=== PATIENT | female | born 1960 | race Caucasian/White ===

== ENCOUNTER 2021-08-11 07:02 | Day surgery (SDC) | payer OTHER, SELFPAY ==
[2021-08-11 07:19] VITALS: BP 127/87; PULSE 65; RESP 16; TEMP 36.2; O2SAT 97
[2021-08-11] MEDS: Tropicam./Phenyleph. (1/2.5%) 5 ML BTL OD ×3 (07:30→07:40)
--- NOTE | 2021-08-11 07:32 | W.ANESPRE ---
General Info Date of Service Date Performed: 08/11/21 Height: 5 ft 5 in Weight: 87.4 kg Body Mass Index (BMI): 32.1 Surgical Procedure: Operation Date: 08/11/21 08:40 Proposed Procedure Side Surgeon p Cataract Extraction with IOL Implant Bilateral Santiago Pop MD Meds Allergies and Home Medications Allergies Allergy/AdvReac Type Severity Reaction Status Date / Time tree and shrub pollen Allergy Intermediate Verified 08/11/21 07:14 shellfish derived AdvReac Intermediate Other (See Verified 08/11/21 07:14 Comment) Home Medication Medication Instructions Recorded acetaminophen 500 mg tablet 1,000 mg PO Q6H 08/09/21 apixaban 5 mg tablet (Eliquis) 5 mg PO BID 08/09/21 aspirin 81 mg tablet,delayed 81 mg PO DAILY 08/09/21 release atorvastatin 10 mg tablet 10 mg PO DAILY 08/09/21 cyclobenzaprine 10 mg tablet 10 mg PO TID 08/09/21 nicotine (polacrilex) 4 mg buccal 4 mg PO Q2H PRN 08/09/21 lozenge nicotine 21 mg/24 hr daily 21 mg TRANSDERMAL Q24H 08/09/21 transdermal patch Current Visit Medications: Current Medications Generic Name Dose Route Start Last Admin Trade Name Freq PRN Reason Stop Dose Admin Acetaminophen 1,000 mg 08/11/21 06:00 Acetaminophen 500 Mg Tab PO Q4H PRN PRN Miscellaneous Medication 0 ml 08/11/21 06:00 Prednisolone 1%, Moxifloxacin 0.5%, Nepafenac 0.1% 5ml Btl OD DIRECTED [facility] Miscellaneous Medication 0 ml 08/11/21 06:00 08/11/21 07:30 Tropicam./Phenyleph. 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 History of palpitations HLD (hyperlipidemia) Hx of uterine prolapse Hypertensive disorder Ischemia of right lower extremity Mass of left adrenal gland Nicotine dependence Obesity Surgical History Surgical History (Updated 08/11/21 @ 07:14 by Velasquez Patrikc) Hx of tubal ligation Tobacco Smoking/Tobacco Use Status: Current every day Tobacco Type: cigarettes Alcohol Alcohol Intake: never Substance Use Substance use: Daily Substance use type: marijuana Vital Signs and Lab Results Vital Signs Most Recent Vital Signs in EMR: Most Recent Vital Signs Temp Pulse Resp BP Pulse Ox 36.2 C L 65 16 127/87 97 08/11/21 07:19 08/11/21 07:19 08/11/21 07:19 08/11/21 07:19 08/11/21 07:19 Lab Results Blood Type / Crossmatch: No Data to Display Complete Blood Count: No Data to Display Complete Metabolic Panel: No Data to Display Liver Function Panel: No Data to Display Coagulation Panel: No Data to Display Cardiac Panel: No Data to Display Arterial Blood Gas: No Data to Display Venous Blood Gas: No Data to Display Pancreas Panel: No Data to Display Thyroid Panel: No Data to Display Infectious Disease: No Data to Display Blood Cultures: No Data to Display Toxicology Panel: No Data to Display Anesthesia Assessment and Plan Anesthesia History Personal History: No History of Anesthesia Complications Family History: No Family History of Anesthesia Complications Exercise Tolerance Exercise Tolerance: Metabolic Equivalents>4 Pertinent Negatives Pertinent Negatives: No Major Cardiovascular Symptoms or Complaints Cardiac & Pulmonary Exam Cardiac Exam: Normal S1/S2 Heart Sounds Pulmonary Exam: Clear Bilateral Breath Sounds Implantable Cardiac Device Does patient have a Pacemaker or an ICD?: No Airway Exam Known Difficult Airway: No Mallampati Class: 2 Mouth Opening: Normal (> 3cm) Thyromental Distance: Greater than 3 cm Neck Range of Motion: Full ROM Neck Circumference: Normal Teeth Condition: Generalized Poor Dentition ASA Classification ASA Score: ASA 3 Emergency Case?: No NPO Status NPO Status: NPO Clears >2 hours, Solids >8 hours Anesthesia Plan Resuscitation Status: Full Code Anesthesia Technique: MAC Anesthesia Airway Planned: Natural Airway Monitors Used: Standard Monitors
[2021-08-11 07:34] VITALS: BMI 32.1
[2021-08-11] MEDS: Lidocaine 2% Jelly 6 ML SYR ×2 (08:08→08:42)
[2021-08-11] MEDS: Povidone-Iodine Ophth 30 ML BTL ×2 (08:08→08:45)
[2021-08-11] MEDS: Tetracaine 0.5% 4 ML BTL OD ×2 (08:08→08:52)
[2021-08-11] MEDS: Duovisc Viscoelastic System EACH 1 EACH ×2 (08:12→08:39)
[2021-08-11] MEDS: Balanced Salt Soln.-PLUS 500 ML BAG ×2 (08:15→08:28)
[2021-08-11 09:00] VITALS: BP 123/76; PULSE 64; RESP 16; TEMP 36.4; O2SAT 97
--- NOTE | 2021-08-11 09:00 | W.PM.DSUDISC ---
Discharge Plan Disposition Patient Disposition: HOME Condition: Good Discharge Details Attending Provider: Santiago Pop Primary Care Provider: Riya Mathew Home Meds and New Rx's Prescriptions: No Action cyclobenzaprine 10 mg Tablet 10 mg PO TID 0RF atorvastatin 10 mg Tablet 10 mg PO DAILY 0RF aspirin 81 mg Tablet,Delayed Release (Dr/Ec) 81 mg PO DAILY 0RF acetaminophen 500 mg Tablet 1,000 mg PO Q6H 0RF nicotine 21 mg/24 hr Patch 24 Hour 21 mg transdermal Q24H 0RF nicotine (polacrilex) 4 mg Lozenge 4 mg PO Q2H PRN0RF Eliquis 5 mg Tablet 5 mg PO BID 0RF Discharge Instructions Stand Alone Forms: Post-op Topical Cataract, Adan Marr (DSU) Discharge Orders Discharge Orders: Discharge Order (Routine); Ordered 08/11/21 Ordered By: Santiago Pop DS: Diagnosis Discharge Diagnosis (1) Nuclear sclerotic cataract of left eye: Status: Resolved (2) Nuclear sclerotic cataract of right eye: Status: Resolved
--- NOTE | 2021-08-11 09:03 | ROE_ITS ---
Date of service: 08/11/21 Time of Service: 09:03 Operative Note Operative Note DATE OF PROCEDURE: 08/11/21 PRE-OP DIAGNOSIS: Nuclear cataract, left eye Nuclear cataract, right eye POST-OP DIAGNOSIS: same PROCEDURE: Immediately sequential bilateral cataract extraction using phacoemulsification with intraocular lens implants, both eyes SURGEON: Santiago Pop Refer to Anesthesia Record PATHOLOGY: none sent COMPLICATIONS: None Patient was transported to: same day Patient's condition: stable Implants: Luis Alberto and [employer] Vision / [employer] Tecnis ZCB00 Indications: Progressive decreased vision due to cataract, both eyes Procedure Description: CATARACT SURGERY OPERATIVE REPORT PREOPERATIVE DIAGNOSIS: Nuclear cataract, left eye Nuclear cataract, right eye POSTOPERATIVE DIAGNOSIS: Same OPERATION: Bilateral sequential cataract extraction using phacoemulsification with posterior chamber intraocular lens implant, both eyes IOL OS: IOL Supervisor [employer]/Model: [employer] / TANIA Tecnis ZCB00 IOL Power: + 14.0 diopters IOL Serial Number: [id number] Optic Diameter: 6.0mm Haptic/Overall Diameter: 13.0mm PHACO INFO OS: Jesus [employer] Vision System with OZil and Active [employer]uidics Cumulative Dispersed Energy (CDE): 7.83 seconds IOL OD: IOL Supervisor [employer]/Model: [employer] Vision / TANIA Tecnis ZCB00 IOL Power: + 13.5 diopters IOL Serial Number: [id number] Optic Diameter: 6.0mm Haptic/Overall Diameter: 13.0mm PHACO INFO OD: Jesus [employer] Vision System with OZil and Active Fluidics Cumulative Dispersed Energy (CDE): 12.59 seconds SURGEON: Santiago Pop MD, DAMARIS ANESTHESIA: Monitored Anesthesia Care (MAC), with local sub-tenon's anesthetic infiltration COMPLICATIONS: None SPECIMENS: None INDICATIONS FOR PROCEDURE: The patient is a 61-year-old lady with history of progressive decreased vision in both eyes secondary to the development of bilateral nuclear cataract, right eye greater than left. The option of cataract surgery was offered to the patient and she wished to proceed. In addition, she desired bilateral same-day cataract surgery to limit her time off from work. The inherent risks and immediately sequential bilateral same-day surgery were discussed with the patient preoperatively, and she wished to proceed. PROCEDURE: The correct surgical eye was identified and marked as both eyes and the pupils were dilated in the preoperative area using mydriatics and cycloplegics. The dilated pupil size was 7.0 mm. Oral sedation was administered in the form of an Imprimis MKO Melt (midazolam 3mg/ketamine 25mg/ondansetron 2mg). The patient was brought to the operating room where cardiopulmonary monitoring was instituted and surgical time-out was performed, confirming the correct operative eye and IOL power. Attention was first directed to the left eye Topical anesthesia was administered and ophthalmic povidone-iodine 5% was instilled into the conjunctival fornices. Lidocaine gel was applied to the cornea and the brian-ocular area was prepped with Betadine 10% solution and draped in the usual sterile fashion for intraocular surgery, including an aperture drape. A Tegaderm transparent film dressing was cut in half and used to cover the lashes and lid margins. Care was taken to sequester the lashes and lid margins under the Tegaderm dressing. A lid speculum was placed between the lids of the operative eye and the Jesus Lux[employer] operating microscope was maneuvered into position. Josué scissors were then used to make a conjunctival buttonhole approximately 6mm posterior to the limbus in the inferonasal quadrant. Blunt dissection was carried out to expose bare sclera, and a blunt-tipped sub-tenon?s anesthesia cannula was introduced and passed posteriorly along the globe where non- preserved plain lidocaine was injected into posterior sub-Tenon?s space. A sideport knife was used to make a paracentesis port at the 12:00 postion. Intraocular phenylephrine/lidocaine was injected into the anterior chamber. The anterior chamber was filled with Healon Pro. A 2.4mm keratome knife was used to create a half-thickness groove at the limbus and then to construct a three-plane near-clear corneal tunnel extending 2.0mm into clear cornea at the 3:00 position. A flap was raised on the anterior capsule and capsulorhexis forceps were used to complete a continuous curvilinear capsulorhexis of 5.0 mm. Balanced salt solution was then used to perform cortical cleaving hydrodissection and nuclear hydrodelineation until the lens could be freely rotated within the capsular bag. The lens nucleus was then disassembled and removed within the capsular bag and iris plane using phacoemulsification. Residual cortical material was removed using the 45-degree angled silicone I/A tip with 0.3mm port. The posterior capsule was carefully polished to remove as much residual lens epithelial cells as safely possible. The capsular bag was then inflated and the anterior chamber deepened with viscoelastic. The lens implant described above was inserted into the capsular bag using the TANIA [place] Injector. A Kuglen hook was used to dial the IOL into position. Residual viscoelastic was then removed first from posterior to the IOL, then from the anterior chamber using the I/A handpiece. The lens implant was noted to center nicely within the capsular bag. The incisions were stromally hydrated, and the anterior chamber was reformed using BSS. Then 0.4cc of moxifloxacin 1.5mg/ml were injected into the capsular bag and anterior chamber. The incisions were checked with a Weck spear and found to be secure. Several drops of ophthalmic povidone-iodine 5% were then applied to the eye followed by two drops of Imprimis combination prednisolone/moxifloxacin/nepafenac solution. The drapes were removed and a clear plastic protective eye shield was placed over the eye. Attention was then directed toward the right eye, where an entirely new set of instruments, tubing, medications, fluids, gowns, gloves, and drapes were used. Topical anesthesia was administered and ophthalmic povidone-iodine 5% was instilled into the conjunctival fornices. Lidocaine gel was applied to the cornea and the brian-ocular area was prepped with Betadine 10% solution and draped in the usual sterile fashion for intraocular surgery, including an aperture drape. A Tegaderm transparent film dressing was cut in half and used to cover the lashes and lid margins. Care was taken to sequester the lashes and lid margins under the Tegaderm dressing. A lid speculum was placed between the lids of the operative eye and the Jesus [employer] operating microscope was chasity uvered into position. Josué scissors were then used to make a conjunctival buttonhole approximately 6mm posterior to the limbus in the inferonasal quadrant. Blunt dissection was carried out to expose bare sclera, and a blunt-tipped sub-tenon?s anesthesia cannula was introduced and passed posteriorly along the globe where non- preserved plain lidocaine was injected into posterior sub-Tenon?s space. A sideport knife was used to make a paracentesis port at the 8:00 postion. Intraocular phenylephrine/lidocaine was injected into the anterior chamber. The anterior chamber was filled with Healon Pro. A 2.4mm keratome knife was used to create a half-thickness groove at the limbus and then to construct a three-plane near-clear corneal tunnel extending 2.0mm into clear cornea at the 10:00 pos ition. A flap was raised on the anterior capsule and capsulorhexis forceps were used to complete a continuous curvilinear capsulorhexis of 5.0 mm. Balanced salt solution was then used to perform cortical cleaving hydrodissection and nuclear hydrodelineation until the lens could be freely rotated within the capsular bag. The lens nucleus was then disassembled and removed within the capsular bag and iris plane using phacoemulsification. Residual cortical material was removed using the 45-degree angled silicone I/A tip with 0.3mm port. The posterior capsule was carefully polished to remove as much residual lens epithelial cells as safely possible. The capsular bag was then inflated and the anterior chamber deepened with viscoelastic. The lens implant described above was inserted into the capsular bag using the TANIA Nondalton Injector. A Kuglen hook was used to dial the IOL into position. Residual viscoelastic was then removed first from posterior to the IOL, then from the anterior chamber using the I/A handpiece. The lens implant was noted to center nicely within the capsular bag. The incisions were stromally hydrated, and the anterior chamber was reformed using BSS. Then 0.5cc of moxifloxacin 1.0mg/ml were injected into the capsular bag and anterior chamber. The incisions were checked with a Weck spear and found to be secure. Several drops of ophthalmic povidone-iodine 5% were then applied to the eye followed by two drops of Imprimis combination prednisolone/moxifloxacin/nepafenac. The drapes were removed and a clear plastic protective eye shield was placed over the eye. The patient was then returned to Same Day Surgery in stable condition.
--- NOTE | 2021-08-11 09:27 | W.ANESPOSTOP ---
Postoperative Evaluation Date, Time and Location Date Performed: 08/11/21 Time Performed: 09:03 Patient Location: Day Surgery Unit Vital Signs Most Recent Imported Vital Signs: Most Recent Vital Signs Temp Pulse Resp BP Pulse Ox 36.4 C L 64 16 123/76 97 08/11/21 09:00 08/11/21 09:00 08/11/21 09:00 08/11/21 09:00 08/11/21 09:00 Pain Score Most Recent Pain Score: Most Recent Pain Score Pain Level 0 08/11/21 09:00 Assessment Mental Status: Awake (Alert & Oriented to Patient Baseline) Airway and Respiratory Function: Patent airway with normal (patient baseline) respiratory exam Cardiovascular Function: Hemodynamically Stable Hydration Status: Adequately Hydrated Nausea & Vomiting: No Nausea or Vomiting Pain: Pt. Denies Any Pain Peripheral Nerve Block: Patient did not receive a nerve block
[2021-08-11 09:32] VITALS: BP 145/84; PULSE 66; RESP 16; TEMP 36.3; O2SAT 98
== END 2021-08-11 09:39 | disposition home or self-care (01) ==
PROVIDERS: PCP Registered Nurse; Visit Provider Ophthalmology
PROC: (CPT 66984; principal; 2021-08-11 08:30)
DX: H25.12 Age-related nuclear cataract, left eye (principal); H25.11 Age-related nuclear cataract, right eye; E78.5 Hyperlipidemia, unspecified; I10 Essential (primary) hypertension
CPT/HCPCS: 66984; V2632